=== PATIENT | female | born 2005 | race Caucasian/White ===

== ENCOUNTER 2023-05-27 19:42 | Emergency (ER) | payer OTHER ==
[~2023-05-27] VITALS: Ht 157.5 cm; Wt 72.6 kg
[2023-05-27 19:56] VITALS: BP 121/70; PULSE 92; RESP 18; TEMP 97.2; O2SAT 98
[2023-05-27] MEDS ORDERED: NAPR-54 PO (21:58)
[2023-05-27 22:10] VITALS: BP 121/70; PULSE 92; RESP 18; TEMP 97.2; O2SAT 98
== END 2023-05-27 22:35 | disposition home or self-care (01) ==
LOC: MED 19:42
DX: S83.8X2A Sprain of other specified parts of left knee, initial encounter (principal); X58.XXXA Exposure to other specified factors, initial encounter; Y93.41 Activity, dancing; Y92.89 Other specified places as the place of occurrence of the external cause; Y99.8 Other external cause status
CPT/HCPCS: 73562; 99283